=== PATIENT | male | born 1995 ===

== ENCOUNTER 2021-03-25 17:14 | Emergency (ER) | payer OTHER ==
[~2021-03-25] VITALS: Ht 198.1 cm; Wt 120.3 kg
[2021-03-25 17:20] VITALS: BP 140/98
[2021-03-25] MEDS ORDERED: ALBUTEROL/IPRATROPIUM 2.5MG/0.5MG, 3 ML NPPB SCH (17:30)
[2021-03-25] MEDS ORDERED: ALBUTEROL/IPRATROPIUM 2.5MG/0.5MG, 3 ML ONE ×2 (17:39→17:51)
[2021-03-25] MEDS ORDERED: DEXAMETHASONE 4 MG/ML, 1ML ONE (17:45)
[2021-03-25] MEDS ORDERED: DEXAMETHASONE 4 MG/ML, 1ML IM ONE (18:00)
--- NOTE | 2021-03-25 18:49 | NUR ---
REPORT FROM LISA RAMIREZ
== END 2021-03-25 19:55 | disposition home or self-care (01) ==
LOC: ED 19:33
DX: J45.31 Mild persistent asthma with (acute) exacerbation (principal); R06.00 Dyspnea, unspecified
CPT/HCPCS: 93005; 94640; 96372; 99283; J1100